=== PATIENT | male | born 1970 | race Caucasian/White ===

== ENCOUNTER 2017-02-07 10:36 | Inpatient (IN) | payer OTHER ==
[~2017-02-07] VITALS: Ht 172.7 cm; Wt 88.5 kg
[2017-02-07 11:41] LABS: HEMOGLOBIN 15.2 gm/dl (14.0-17.5); RED BLOOD COUNT 4.99 M/UL (4.20-5.50)
[2017-02-07 13:34] LABS: BUN/CREATININE RATIO 17 (0-10)
[2017-02-07] MEDS ORDERED: IPRAT-ALBUT 0.5-3 ML INH (18:05)
[2017-02-07] MEDS ORDERED: PROVENTIL HFA 61 INH INH (18:05)
[2017-02-08 04:41] LABS: HEMOGLOBIN 14.2 gm/dl (14.0-17.5); RED BLOOD COUNT 4.67 M/UL (4.20-5.50); WHITE BLOOD COUNT 19.1 K/UL (4.5-11.0)
[2017-02-08 05:07] LABS: BUN/CREATININE RATIO 17 (0-10)
[2017-02-09 05:51] LABS: HEMOGLOBIN 13.7 gm/dl (14.0-17.5); RED BLOOD COUNT 4.6 M/UL (4.20-5.50)
[2017-02-09 05:53] LABS: WHITE BLOOD COUNT 26.6 K/UL (4.5-11.0)
[2017-02-09 06:12] LABS: BUN/CREATININE RATIO 26 (0-10)
[2017-02-10 06:12] LABS: RED BLOOD COUNT 4.68 M/UL (4.20-5.50); WHITE BLOOD COUNT 21.9 K/UL (4.5-11.0)
[2017-02-10 06:28] LABS: BUN/CREATININE RATIO 23 (0-10)
[2017-02-10] MEDS ORDERED: MEDROL DOSEPAK 24 MG PO (16:47)
[2017-02-10] MEDS ORDERED: GLUCOPHAGE 500500 MG PO (16:50)
[2017-02-10] MEDS ORDERED: SYMBICORT 16010.2 GM INJ (16:51)
== END 2017-02-10 17:20 | disposition home or self-care (01) | DRG 189 ==
LOC: ER1 10:36 → MED SURG 4 16:50 → ZEROF 16:50 → MED SURG 4 20:37
PROVIDERS: Emergency Medicine; Family Medicine; Physician Assistant; ADMIT Internal Medicine
DX: J96.01 Acute respiratory failure with hypoxia (principal); J44.1 Chronic obstructive pulmonary disease with (acute) exacerbation; J44.0 Chronic obstructive pulmonary disease with (acute) lower respiratory infection; J20.9 Acute bronchitis, unspecified; E11.9 Type 2 diabetes mellitus without complications; F17.210 Nicotine dependence, cigarettes, uncomplicated; Z79.51 Long term (current) use of inhaled steroids; D72.829 Elevated white blood cell count, unspecified; Z90.81 Acquired absence of spleen; Z82.49 Family history of ischemic heart disease and other diseases of the circulatory system; Z80.1 Family history of malignant neoplasm of trachea, bronchus and lung
CPT/HCPCS: 36415; 36600; 71020; 80048; 80053; 82550; 82553; 82803; 82962; 83036; 83690; 83735; 83874; 83880; 84484; 85025; 85027; 87040; 87077; 87186; 93005; 94640; 94664; 96374; 99285; J0696; J1956; J2920; J2930; J3370; J7030; J7050; J7070; J7509

== ENCOUNTER → 2017-02-16 | Outpatient (CLI) | payer OTHER ==
[~2017-02-16] MED LIST: GLUCOPHAGE 500500 MG PO; IPRAT-ALBUT 0.5-3 ML INH; MEDROL DOSEPAK 24 MG PO; PROVENTIL HFA 61 INH INH; SYMBICORT 16010.2 GM INJ
== END ==
LOC: KOH-I 11:50
DX: J44.9 Chronic obstructive pulmonary disease, unspecified (principal); J43.9 Emphysema, unspecified
CPT/HCPCS: 71020

== ENCOUNTER → 2017-04-18 | Outpatient (CLI) | payer OTHER | LOC: SLEEP 21:30 | DX: G47.33 Obstructive sleep apnea (adult) (pediatric) (principal) | CPT/HCPCS: 95811 ==

== ENCOUNTER → 2017-04-24 | Outpatient (CLI) | payer OTHER | LOC: KOH-I 11:28 | DX: J44.1 Chronic obstructive pulmonary disease with (acute) exacerbation (principal); D72.829 Elevated white blood cell count, unspecified | CPT/HCPCS: 71020 ==

== ENCOUNTER → 2017-05-09 | Outpatient (CLI) | payer OTHER | LOC: CT 07:47 | DX: K43.9 Ventral hernia without obstruction or gangrene (principal); R93.3 Abnormal findings on diagnostic imaging of other parts of digestive tract | CPT/HCPCS: 36415; 74160; 82565; 84520; J7050; Q9962 ==

== ENCOUNTER 2022-07-11 08:29 | Observation (INO) | payer OTHER ==
[~2022-07-11] VITALS: Ht 172.7 cm; Wt 84.4 kg
[~2022-07-11 08:29] MED LIST changes: -PROVENTIL HFA 61 INH INH; +PROVENTIL HFA6.7 GM INH; +SYMBICORT 16010.2 GM INH; -SYMBICORT 16010.2 GM INJ
[2022-07-11 10:00] LABS: HEMOGLOBIN 16.4 gm/dl (14.0-17.5); RED BLOOD COUNT 5.21 M/UL (4.20-5.50); WHITE BLOOD COUNT 19.1 K/UL (4.5-11.0)
[2022-07-11 11:07] LABS: BUN/CREATININE RATIO 25 (0-10)
[2022-07-11] MEDS ORDERED: FLONASE ALLER15.8 ML (14:36)
[2022-07-11] MEDS ORDERED: MONTELUKAST SOD10 MG PO (14:36)
[2022-07-12 06:32] LABS: BUN/CREATININE RATIO 16 (0-10)
[2022-07-12 08:05] LABS: HEMOGLOBIN 13.4 gm/dl (14.0-17.5); RED BLOOD COUNT 4.44 M/UL (4.20-5.50); WHITE BLOOD COUNT 14.2 K/UL (4.5-11.0)
[2022-07-12] MEDS ORDERED: LEVOFLOXACIN500 MG PO (18:52)
[2022-07-12] MEDS ORDERED: PROTONIX40 MG PO (18:55)
== END 2022-07-12 19:17 | disposition home or self-care (01) ==
LOC: ER1 08:29 → MED SURG 4 13:53 → NSRY 13:53 → MED SURG 4 13:53 → CDU 13:54 → MED SURG 4 18:16
PROVIDERS: Physician Assistant; Physician Assistant Medical; ADMIT Internal Medicine
DX: K56.600 Partial intestinal obstruction, unspecified as to cause (principal); N30.00 Acute cystitis without hematuria; B96.89 Other specified bacterial agents as the cause of diseases classified elsewhere; E11.9 Type 2 diabetes mellitus without complications; E78.5 Hyperlipidemia, unspecified; I10 Essential (primary) hypertension; J44.9 Chronic obstructive pulmonary disease, unspecified; F17.210 Nicotine dependence, cigarettes, uncomplicated; G47.33 Obstructive sleep apnea (adult) (pediatric)
CPT/HCPCS: 36415; 80048; 80053; 81001; 82550; 82553; 82962; 83690; 83735; 84484; 85025; 85027; 87077; 87086; 87186; 93005; 94664; 94760; 96374; 96375; 96376; 99285; C9113; G0378; J0696; J2270; J2405; Q9967

== ENCOUNTER → 2022-07-20 | Outpatient (CLI) | payer OTHER ==
[~2022-07-20] MED LIST changes: +FLONASE ALLER15.8 ML; +LEVOFLOXACIN500 MG PO; +MONTELUKAST SOD10 MG PO; +PROTONIX40 MG PO
[2022-07-20 09:16] LABS: HEMOGLOBIN 14.5 gm/dl (14.0-17.5); RED BLOOD COUNT 4.79 M/UL (4.20-5.50)
[2022-07-20 09:36] LABS: BUN/CREATININE RATIO 24 (0-10)
== END ==
LOC: LAB 08:45
PROVIDERS: Nurse Practitioner
DX: Z13.9 Encounter for screening, unspecified (principal); E11.9 Type 2 diabetes mellitus without complications; E78.00 Pure hypercholesterolemia, unspecified; N40.0 Benign prostatic hyperplasia without lower urinary tract symptoms
CPT/HCPCS: 36415; 80053; 80061; 83036; 83690; 84153; 84439; 84443; 85025